=== PATIENT | female | born 1955 | race Caucasian/White ===

== ENCOUNTER 2016-12-08 05:03 | Emergency (ER) | payer BC ==
[~2016-12-08] VITALS: Ht 167.6 cm; Wt 70.3 kg
--- NOTE | ~2016-12-08 | EKG ---
[place] [address] [facility] [place] [address] ELECTROCARDIOGRAM REPORT Name: GELACIO MUHAMMAD Room #: REG [facility] VALLEYO[place]#: [id number] Admission: 12/08/16 Attend Phys: Discharge: Date of : 53 Report #: [id number] THIS REPORT FOR: //name// [facility] ED Test Date: 2016-12-08 Test Time: 05:56:32 Pat Name: GELACIO MUHAMMAD Department: Room: Gender: F [employer] Machine Operator: JNANDINI : 1955 Requested By: Juan Wright Order Number: [id number] MD: Rod Cavazos Measurements Intervals [place] Rate: 89 P: 76 ND: 232 QRS: 47 QRSD: 104 T: 52 QT: 385 QTc: 469 Interpretive Statements Sinus rhythm Prolonged ND interval No previous ECG available for comparison Electronically Signed On 12-08-2016 8:58:33 CDT by Rod Cavazos [email or web address] <ELECTRONICALLY SIGNED> By: Rod Cavazos MD, [facility] 12/08/16 0858 [phone] Rod Cavazos MD, FACC /EPI
[~2016-12-08 05:03] MED LIST: PROTONIX40 M1 PO
[2016-12-08 06:19] LABS: ALBUMIN 3.9 g/dL (3.4-5.0); ALKALINE PHOSPHATASE 90 U/L (46-116); ANION GAP 10 mmol/L (7-16); BUN 8 mg/dL (7-18); CALCIUM 8.8 mg/dL (8.5-10.1); CHLORIDE 82 mmol/L (98-107); CO2 23 mmol/L (21-32); CREATININE 0.6 mg/dL (0.6-1.0); GLUCOSE 131 mg/dL (74-106); POTASSIUM 3.8 mmol/L (3.5-5.1); SGOT 37 U/L (15-37); SGPT 22 U/L (30-65); TOTAL BILIRUBIN 0.7 mg/dL (<0.1-1.0); TOTAL PROTEIN 7.4 g/dL (6.4-8.2); TROPONIN-I < 0.04 ng/mL (<0.04-0.07)
[2016-12-08 06:25] LABS: ABSOLUTE NEUTROPHILS 7.8 thou/uL (1.4-8.2); BASOPHILS 0.1 % (0.0-2.0); EOSINOPHILS 0.2 % (0.0-3.0); HEMATOCRIT 32.3 % (37.0-47.0); LYMPHOCYTES 9.2 % (24.0-44.0); MCHC 34.1 g/dL (28.0-37.0); MCV 90.9 fL (80.0-100.0); MONOCYTES 4.7 % (1.0-8.0); PLATELET COUNT 338 thou/uL (150-400); POLYS 85.8 % (36.0-66.0); RBC 3.55 mil/uL (4.20-5.00); RDW 13.8 % (10.5-14.5); WBC 9.1 thou/uL (4.0-11.0)
[2016-12-08 06:26] LABS: MANUAL DIFF NO
[2016-12-08 06:27] LABS: SODIUM 115 mmol/L (136-145)
[2016-12-08 06:27] LABS: URINE BILIRUBIN NEGATIVE (Negative); URINE BLOOD 1+ (Negative); URINE COLOR YELLOW; URINE GLUCOSE-RANDOM* NEGATIVE (Negative); URINE KETONES 2+ (Negative); URINE LEUKOCYTES-REFLEX NEGATIVE (Negative); URINE PROTEIN (DIPSTICK) NEGATIVE (Negative); URINE UROBILINOGEN 0.2 E.U./dl (0.2-1.0)
[2016-12-08 06:39] LABS: CASTS None Seen /LPF (None Seen); SQUAMOUS 0-3 Few /LPF (0-3)
[2016-12-08 06:40] LABS: CRYSTALS None Seen /LPF (None Seen); URINE RBC 3-10 Few /HPF (0-2); URINE WBC-REFLEX 0-5 Rare /HPF (0-5)
[2016-12-08] MEDS ORDERED: ZOFRAN ODT4 MG PO (08:38)
[2016-12-08 09:00] VITALS: BP 128/98
== END 2016-12-08 09:00 | disposition home or self-care (01) ==
LOC: ER 05:03
PROVIDERS: Emergency Medicine
DX: R11.2 Nausea with vomiting, unspecified (principal); R25.2 Cramp and spasm; Z87.19 Personal history of other diseases of the digestive system

== ENCOUNTER 2017-12-12 17:07 | Emergency (ER) | payer OTHER ==
[~2017-12-12] VITALS: Ht 167.6 cm; Wt 65.8 kg
[~2017-12-12 17:07] MED LIST changes: +ZOFRAN ODT4 MG PO
[2017-12-12] MEDS ORDERED: HYDROCODONE-AP1 EAC6 PO (18:49)
[2017-12-12] MEDS ORDERED: CRUTCHES MISCELL (18:50)
[2017-12-12 20:04] VITALS: BP 162/84
== END 2017-12-12 19:04 | disposition home or self-care (01) ==
LOC: ER 17:07
DX: S92.351A Displaced fracture of fifth metatarsal bone, right foot, initial encounter for closed fracture (principal); W10.8XXA Fall (on) (from) other stairs and steps, initial encounter; Y92.89 Other specified places as the place of occurrence of the external cause; Y93.89 Activity, other specified; Y99.8 Other external cause status

== ENCOUNTER 2021-04-12 09:35 | Inpatient (IN) | payer OTHER ==
[~2021-04-12] VITALS: Ht 167.6 cm; Wt 64.4 kg
[~2021-04-12 09:35] MED LIST changes: +CRUTCHES MISCELL; +HYDROCODONE-AP1 EAC6 PO
[2021-04-12 09:42] VITALS: BP 162/92
[2021-04-12] MEDS ORDERED: XANAX 0.25 MG0.25 MG PO (09:48)
[2021-04-12 10:55] LABS: ABSOLUTE NEUTROPHILS 5.8 thou/uL (1.4-8.2); BASOPHILS 0.8 % (0.0-2.0); EOSINOPHILS 0.5 % (0.0-3.0); HEMATOCRIT 36.2 % (37.0-47.0); LYMPHOCYTES 11.7 % (24.0-44.0); MCH 31.5 pg (26.0-34.0); MCHC 33.2 g/dL (28.0-37.0); MONOCYTES 7.8 % (1.0-8.0); PLATELET COUNT 373 thou/uL (150-400); POLYS 79.2 % (36.0-66.0); RBC 3.81 mil/uL (4.20-5.00); RDW 15.4 % (10.5-14.5); WBC 7.3 thou/uL (4.0-11.0)
[2021-04-12 10:59] LABS: CALCIUM 9.1 mg/dL (8.5-10.1); CREATININE 0.9 mg/dL (0.6-1.0); POTASSIUM 4.2 mmol/L (3.5-5.1)
[2021-04-12 12:52] LABS: URINE BILIRUBIN NEGATIVE (Negative); URINE BLOOD TRACE (Negative); URINE CLARITY CLEAR; URINE COLOR YELLOW; URINE GLUCOSE-RANDOM* NEGATIVE (Negative); URINE KETONES 3+ (Negative); URINE LEUKOCYTES-REFLEX NEGATIVE (Negative); URINE NITRITE-REFLEX NEGATIVE (Negative); URINE PROTEIN (DIPSTICK) NEGATIVE (Negative); URINE UROBILINOGEN 0.2 E.U./dl (0.2-1.0)
[2021-04-12 13:17] LABS: URINE REDUCING SUBSTANCE NEGATIVE
[2021-04-12 16:28] LABS: FOLIC ACID 21.1 ng/mL (8.6-58.9)
[2021-04-12 20:50] VITALS: BP 130/61
--- NOTE | 2021-04-13 00:19 | NUR ---
PT IS A/O X4 AND IS UP AD JOHNATHAN. ROOM AIR. VSS. AFEBRILE. DENIES C/O PAIN OR DISCOMFORT. MEDICATIONS GIVEN PER MAR. ADMISSION IS COMPLETE. PT HAS BEEN EDUCATION ON USE OF CALL LIGHT AND BED CONTROLS. MAINTANCE FLUIDS INFUSING. CALL LIGHT IS WITHIN REACH
[2021-04-13 05:45] LABS: HEMATOCRIT 29.7 % (37.0-47.0); MCH 31.3 pg (26.0-34.0); MCHC 33.1 g/dL (28.0-37.0); MCV 94.7 fL (80.0-100.0); RBC 3.14 mil/uL (4.20-5.00); RDW 15.4 % (10.5-14.5); WBC 5.4 thou/uL (4.0-11.0)
[2021-04-13 05:49] LABS: HEMOGLOBIN 9.8 gm/dL (12.0-15.0)
[2021-04-13 07:40] VITALS: BP 132/62
--- NOTE | 2021-04-13 15:45 | NUR ---
ASSUMED CARE OF PT AT 0700 THIS MORNING. PT IS ADMITTED FOR EGD TEST TOMORROW. PT IS A/OX4, SKIN INTACT WITH NO TENTING. PT C/O NOT ABLE TO EAT WITHOUT FEELING FULL FAST. ASSESSMENTS NOTED IN CHART AND OTHERWISE UNREMARKABLE. PT IS AMBULATORY TO TOILET WITHOUT ISSUES. NO FALL PRECAUTIONS ARE NOT RECOMMENDED. CALL LIGHT AND OTHER NEEDS ARE IN REACH. MEDS AND TX GIVEN NEEDED AND SCHEDULED. WILL MONITOR AND NOTE ANY CHANGES.
[2021-04-13 17:05] VITALS: BP 117/63
[2021-04-13 19:49] VITALS: BP 131/83
--- NOTE | 2021-04-13 22:44 | NUR ---
PT ALERT ANDORIENTED X4. VSS AFEBRILE. NO C/O PAIN SO FAR TONIGHT. PT INSTRUCTED TO BE NPO AFTER MN FOR EGD. BED DOWN CALL LIGHT IN REACH. NO S/S DISTRESS. PT STATES SHE IS HAVING LIQUIDS STOOLS BUT NO FORMED BM IN 3 DAYS.
[2021-04-14 05:30] VITALS: BP 155/78
[2021-04-14 05:49] LABS: HEMATOCRIT 29.2 % (37.0-47.0); HEMOGLOBIN 9.8 gm/dL (12.0-15.0); MCHC 33.7 g/dL (28.0-37.0); RBC 3.07 mil/uL (4.20-5.00); RDW 15.7 % (10.5-14.5); WBC 5.7 thou/uL (4.0-11.0)
[2021-04-14 05:51] LABS: ALBUMIN 2.6 g/dL (3.4-5.0); CALCIUM 7.9 mg/dL (8.5-10.1); CREATININE 0.7 mg/dL (0.6-1.0); POTASSIUM 3.7 mmol/L (3.5-5.1)
--- NOTE | 2021-04-14 06:23 | NUR ---
PT RESTING QUIETLY WAITING FOR EGD WITH HER HUSBANDI THE ROOM. PT STATES NO LIQUID STOOLS TONIGHT.
[2021-04-14 07:47] VITALS: BP 151/79
--- NOTE | 2021-04-14 07:58 | NUR ---
Chart review. here with ABD pain. Recently been to [facility]. Noted she home with spouse. Support from her spouse and children. Possible will have EGD today. Will cont. following as needed for dc needs.
--- NOTE | 2021-04-14 11:40 | NUR ---
ASSUMED CARE OF PT AT 0700 THIS MORNING. PT IS A/OX4 AND GOING TO EGD AT 1400 THIS AFTERNOON. CONTINUING PT CARE FROM . ASSESSMENTS NOTED IN CHART AND OTHERWISE UNREMARKABLE. PT IS UP INDEP TO TIOLET. CALL LIGHT AND OTHER NEEDS ARE IN REACH. NO FALL PRECAUTIONS NEEDED. MEDS AND TX GIVEN NEEDED AND SCHEDULED. WILL MONITOR AND NOTE ANY CHANGES.
[2021-04-14 19:58] VITALS: BP 148/78
[2021-04-15 07:10] VITALS: BP 138/69
[2021-04-15 07:20] VITALS: BP 138/69; BP 147/72
--- NOTE | 2021-04-15 07:32 | NUR ---
RECEIVED CARE OF THIS PATIENT AT 1900. PATIENT ALERT AND ORIENTED X4. UP AD JOHNATHAN. DENIES PAIN. C/O FULL FEELING. NPO SINCE AR FOR A PROCEDURE. SLEPT MOST OF NIGHT.
[2021-04-15] MEDS ORDERED: REGLAN 5 MG TAB5 MG PO (09:59)
--- NOTE | 2021-04-15 10:51 | NUR ---
Discussed during los with hospitalist, ready to dc home. No needs. Called her spouse, no answer. called mehrdad rodriguez, spoke with her, education on dcp for today. Not sure i am in the middle of a procedure right now per mehrdad rodriguez. dcp: home no needs.
--- NOTE | 2021-04-15 15:05 | NUR ---
RE-ASSUMED CARE OF PT AT 0700. PT HAS STOMACH EMPTYING TEST SCHEDULED FOR THE MORNING. ASSESSMENTS NOTED IN CHART AND OTHERWISE UNREMARKABLE. PT IS AMBULATORY AND WALKS TO TOILET INDEP. CALL LIGHT AND OTHER NEEDS ARE IN REACM. MEDS AND TX GIVEN NEEDED AND SCHEDULED. PT DOES NOT WANT TO LEAVE UNTIL SHE SPEAKS WITH THE GI PHYSICIAN. WILL MONITOR AND NOTE ANY CHANGES.
[2021-04-15 16:01] VITALS: BP 154/73
[2021-04-15 18:10] VITALS: BP 138/69
[2021-04-15 18:11] VITALS: BP 174/100
--- NOTE | 2021-04-16 16:17 | P ---
[facility] [place] [address] PROCEDURE REPORT Name: GELACIO MUHAMMAD Room #: 433-I [facility] IN M.R.#: [id number] Admission: 04/12/21 Attend Phys: Beto Kory Mackaysher Discharge: 04/15/21 Date of : 53 Report #: [id number] THIS REPORT FOR: cc: Stefan Nixon MD, Christopher B. MD McElhinney, Christian C. MD ~ cc: Jose A Nixon MD, Nimesh Ashley MD, Adin Luna MD DATE OF SERVICE: 04/14/2021 PROCEDURE PERFORMED: Upper endoscopy with biopsies and esophageal dilation. HISTORY OF PRESENT ILLNESS: The patient is a 65-year-old female with recent history of nausea, intermittent dysphagia. She has undergone previous dilations in the past of her esophagus for dysphagia, the last one being several years ago. She had been on Protonix for many years, quit that medication approximately 6 weeks ago for history of anemia, started taking oral iron, did have increased nausea and constipation with iron, but is now off oral iron therapy. She denies any obvious blood in her stool. She has had a recent hospitalization in [facility], reportedly a CT is showing a lesion in the liver and is scheduled for an MRI of her liver as an outpatient next week. She does report some dysphagia to pills primarily. Denies any significant heartburn at this time. She does complain of early satiety. She has had a previous cholecystectomy many years ago. She denies any NSAIDs in general. Last colonoscopy was 2 years ago and reportedly negative. DESCRIPTION OF PROCEDURE: The risks and benefits of the procedure were explained to the patient, those risks including but not limited to bleeding, perforation and the risk of sedation. She understood these risks and gave informed consent. Sedation was given using propofol per anesthesia. Next, using a standard Olympus upper endoscope, the scope was placed in the patient's mouth and advanced under direct vision through the esophagus, stomach and into the second portion of the duodenum. The larynx was normal in appearance. The esophagus was normal throughout. The GE junction was normal. No evidence of esophageal stricture. No evidence of esophagitis. Upon entering the stomach, a medium size hiatal hernia was noted. There were multiple gastric polyps. Several biopsies were obtained. Otherwise, normal gastric mucosa. The biopsies were also obtained to rule out H. pylori. The pylorus was normal and patent. The duodenal bulb, first and second portion were all normal. Biopsies were obtained to rule out the possibility of celiac sprue. The scope was then brought back up into the patient's stomach and a Savary guidewire was inserted through the scope, leaving the wire in place as the scope was then withdrawn. Next, a 51-Scottish Savary dilation of the esophagus was performed without difficulty. The wire and dilator removed. The scope was reintroduced into the patient's stomach. There was no evidence of mucosal tear after dilation. The scope was then withdrawn and the procedure terminated. The patient tolerated [address] [address] PROCEDURE REPORT Name: GELACIO MUHAMMAD Room #: 433-I [facility] IN M.R.#: [id number] Admission: 04/12/21 Attend Phys: Beto Seay Discharge: 04/15/21 Date of : 53 Report #: [id number] the procedure well. IMPRESSION: 1. Medium size hiatal hernia. 2. Gastric polyps. 3. Otherwise normal upper endoscopy. RECOMMENDATIONS: 1. Await biopsy results. 2. Continue PPI therapy. 3. Observe the patient post-dilation. 4. Plan is to proceed with a gastric emptying study tomorrow. Thank you for allowing me to participate in her care. <ELECTRONICALLY SIGNED> By: Martín Ramirez MD 04/16/21 1617 1421 0121 Martín Ramirez MD /nt
--- NOTE | 2021-04-17 10:08 | PATH ---
[facility] [place] [address] [address] [place] [address] PATHOLOGY RPT PROCEDURE Name: GELACIO OSORIO Room #: 433-I [facility] IN M.R.#: [id number] Admission: 04/12/21 Date of : 53 Discharge: 04/15/21 Report #: [id number] Path Case #: [id number] [facility] Accession Number: [id number] . 01 Material submitted: . PART A: duodenum - DUODENUM R/O SPRUE PART B: gastrointestinal site - GASTRIC BIOPSY R/O H. PYLORI PART C: gastrointestinal site - GASTRIC POLYP . 01 Clinical history: . EGD ESOPHAGEAL STRICTURE EARLY SATIETY, KETONURIA, DIARRHEA, ABD PAIN . 02 Diagnosis: A. Duodenal mucosa, duodenum, biopsy: - Intact normal villous architecture. - No increase in intraepithelial lymphocytes. . B. Gastric mucosa, gastric, biopsy: - Mild inactive chronic gastritis. - Immunohistochemical stain for H. pylori is negative. . C. Gastric mucosa, gastric polyp, biopsy: - Fundic gland polyp. (SCA:pit; 04/16/2021) MBR 04/16/2021 1341 Local . 02 Electronically signed: . Mike Wilson DO, Pathologist NPI- [id number] . 01 Gross description: . A. The specimen is received in formalin, labeled "Gelacio Osorio, biopsy duodenum". Received are four segments of pale nguyen tissue ranging in size from 0.3-0.5 cm in maximum dimensions. The specimen is submitted entirely in cassette A1. . B. The specimen is received in formalin, labeled "Gelacio Osorio, gastric biopsy". Received are four segments of pale nguyen tissue ranging in size from 0.2-0.7 cm in maximum dimensions. The specimen is submitted entirely in cassette B1. . C. The specimen is received in formalin, labeled "Gelacio Osorio, gastric polyp". Received are five segments of pale nguyen tissue ranging in size from 0.2-0.5 cm in maximum dimensions. The specimen is submitted entirely in cassette C1. [address] [address] PATHOLOGY RPT PROCEDURE Name: GELACIO OSORIO ANN Room #: 433-I [facility] IN M.R.#: [id number] Admission: 04/12/21 Date of : 53 Discharge: 04/15/21 Report #: [id number] Path Case #: [id number] (CAA; 04/15/2021) QAC/QAC 04/16/2021 [facility] . 02 Pathologist provided ICD-10: K29.50, K31.7 . 02 CPT . 623582, 056901, 819830, [id number] Specimen Comment: A courtesy copy of this report has been sent to [phone], [phone] Specimen Comment: [phone], Specimen Comment: Report sent to , DR CHI / DR HOWARD Specimen Comment: A duplicate report has been generated due to demographic updates. Performed at: 01 [facility] [address] [place] [address] [id number] MD Tay Gil MD Phone: [phone] Performed at: 02 [facility] [address] [id number] MD Florencio Berg MD Phone: [phone]
== END 2021-04-15 17:55 | disposition home or self-care (01) | DRG 393 ==
LOC: ER 09:35 → EROBS 15:27 → 4S 15:27
PROVIDERS: Emergency Medicine; ADMIT Hospitalist; ATTEND Hospitalist
DX: K31.7 Polyp of stomach and duodenum (principal); E43 Unspecified severe protein-calorie malnutrition; S36.119A Unspecified injury of liver, initial encounter; R13.10 Dysphagia, unspecified; K29.70 Gastritis, unspecified, without bleeding; R63.0 Anorexia; D50.9 Iron deficiency anemia, unspecified; K76.89 Other specified diseases of liver; R63.4 Abnormal weight loss; Z20.822 Contact with and (suspected) exposure to COVID-19; R82.4 Acetonuria; R68.81 Early satiety; K59.00 Constipation, unspecified; K44.9 Diaphragmatic hernia without obstruction or gangrene; F41.9 Anxiety disorder, unspecified; K21.9 Gastro-esophageal reflux disease without esophagitis; D64.9 Anemia, unspecified; X58.XXXA Exposure to other specified factors, initial encounter; Y93.89 Activity, other specified; Y92.89 Other specified places as the place of occurrence of the external cause; Y99.8 Other external cause status; Z28.21 Immunization not carried out because of patient refusal; Z68.22 Body mass index [BMI] 22.0-22.9, adult; Z90.49 Acquired absence of other specified parts of digestive tract; Z23 Encounter for immunization
CPT/HCPCS: 10195; 62110; 62900